=== PATIENT | male | born 1935 | race Caucasian/White ===

== ENCOUNTER 2022-05-21 09:15 | Outpatient (RCR) | payer MEDICARE, BC, SELFPAY | END 2022-05-23 17:17 | disposition home or self-care (01) | DX: M25.561 Pain in right knee (principal); Z51.89 Encounter for other specified aftercare | CPT/HCPCS: 97110; 97140; 97161 ==

== ENCOUNTER 2022-10-29 22:12 | Outpatient (CLI) | payer MEDICARE, BC, SELFPAY | END 2022-10-29 22:13 | disposition home or self-care (01) | LOC: AMB 10-30 16:27 | PROVIDERS: PCP Family Medicine; Visit Provider Family Medicine | DX: R10.9 Unspecified abdominal pain (principal) | CPT/HCPCS: A0425; A0428 ==

== ENCOUNTER 2023-09-03 14:00 | Outpatient (RCR) | payer MEDICARE, BC, SELFPAY | END 2024-01-01 23:59 | disposition home or self-care (01) | PROVIDERS: PCP Family Medicine; Visit Provider Family Medicine | DX: M79.605 Pain in left leg (principal); M54.42 Lumbago with sciatica, left side; Z51.89 Encounter for other specified aftercare | CPT/HCPCS: 97110; 97140; 97162 ==

== ENCOUNTER 2023-12-03 20:18 | Outpatient (CLI) | payer MEDICARE, BC, SELFPAY | END 2023-12-03 20:19 | disposition home or self-care (01) | LOC: SLEEP 20:19 | PROVIDERS: PCP Family Medicine; Visit Provider Internal Medicine | DX: G47.33 Obstructive sleep apnea (adult) (pediatric) (principal); G47.61 Periodic limb movement disorder | CPT/HCPCS: 95810 ==

== ENCOUNTER 2024-03-09 10:00 | Outpatient (RCR) | payer MEDICARE, BC, SELFPAY | END 2024-03-09 10:51 | disposition home or self-care (01) | PROVIDERS: PCP Family Medicine; Visit Provider Family Medicine | DX: M54.50 Low back pain, unspecified (principal); G89.29 Other chronic pain; Z51.89 Encounter for other specified aftercare | CPT/HCPCS: 97110; 97140; 97161 ==

== ENCOUNTER 2024-07-10 13:45 | Outpatient (RCR) | payer MEDICARE, BC, SELFPAY ==
--- NOTE | 2024-06-24 11:45 | PT.OPEX ---
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 Referring MD Lopez Subjective Preferred Name Asif Subjective Reports he has been doing his exercises, but modifies them and has difficulty due to pain L post hip 'like my billfold is there stabbing me.' Had relief with injection 6 months ago, repeated 3 months ago but that injection did not work for him. States he has been declining in strength and mobility due to pain. Pt is now up with his walker, noted L lateral shift, poor safety turning and backing up. Pain Comments L groin and L PSIS/buttock area-moderate to severe, nearly constant. Reports he has scoliosis and wears a L shoe insert for leg length discrepancy. Date of Last Physician Visit 05/29/24 Current Work Status Retired Precautions Treatment Precautions/Contraindications hx RTC repair, OA, falls, walker use; R foot metatarsalgia-seeing neurology for that today Weight Bearing Status Weight Bear as Tolerated Therapy Limitations/Systems Review Not Limited Objective Range of Motion L hip flex 10-95 degrees, abd 0-20, ER 0-15, IR 0-7 R hip flex 5-100 degrees, abd 0-20, ER 0-30, IR 0-15 L knee 20-100 degrees flex, R knee 5-105 flex B DF to 10 degrees, PF to 45 L lumbar shift, vc to get wt onto L hip seated, lacks rotation, bend, limited due to pain L hip/groin Strength L hip flex 3+/5, R 5-/5 L hip abd 3+/5, R 5-/5 L hip add 3+/5, R 5-/5 L knee ext 3+/5, R 5-/5 L knee flex 4/5, R 5-/5 Shldrs B 4/5, elbow/wrist/ hands 5-/5 L DF 4/5, R 4+/5 L PF 4/5, R 4+/5 Swelling B ankle edema L > R Palpation L ischial tuberosity, L greater tuberosity, central LB , L PSIS Balance & Gait sitting good static/dynamic standing fair- static/dynamic with walker 4ww 100 feet x 2 total, took 10 min to amb each time. Gt slow, antalgic, short stiff step L, lacks heel toe gt, short step on R due to minimal wt shift to L. Pt does have L lat shift at lumbar spine. Poor safety turning, backing up, labored, vc to take small marching steps with 4ww. Posture mild thoracic flex, L lat lumbar shift, hip flex 20 degrees, knees flexed L > R. Sensation/Reflexes intact to light touch Other/Pertinent Objective Fabers +, very limited hip rotation for test SLR + Functional Test Performed & Score 5 time sit<>stand 2.2 min shows high fall risk Functional reach 6 inches shows fall risk both limited due to c/o L hip pain. Assessment Assessment/Impression Asif is a 89 year old male, lives with his spouse in an older 2 story home, has had progressive L hip pain, now using a 4ww with difficulty even short distance amb. Dx also of L lumbar radiculopathy . Pt saw ortho, finds injections have not helped him , and was offered a LIZETT. He wants to try PT again before progressing to surgery. Pt presents with significant L hip and groin pain, noted L lat shift seated, standing and with gt. He reports lifetime hx of scoliosis. Today, he presents with limited HF, abd and little to no ER/IR of hips . Knees also lack extension L >R. Strength is impaired L LE, painful with testing. Pt with trigger point tenderness along L glut, piriformis and PSIS. Tolerated STM and stretching. Pt has been doing some of his own ex, demonstrated and revised for home use, did add tband seated ex for increased isometric strengthening. Worked with pt on gt safety with 4ww, avoiding stepping outside of walker base, extending hips/ back as he is able. Worked on correcting shift of his back supine, seated and standing. Pt does avoid putting wt on L hip seated and L LE in standing due to pain. Pt with impaired balance, needs walker for safety of all mobility and is at high fall risk. PT will work with him on strengthening, but therapist did discuss benefits of reducing his current pain and immobility if he chooses a hip replacement. PT to cont weekly sessions working towards goals. Pt has good cognition for new learning. Primary Functional Limitations impaired ROM, impaired strength, impaired balance, impaired ambulation, impaired mobility, L hip and groin pain with radicular sx. Plan of Care Rehabilitation Potential Good Rehabilitation Potential Comments Access Code: [email or web address] URL: [email or web address] Date: 06/24/2024 Prepared by: Alexandra Mancini Exercises - Seated Gluteal Sets - 1 x daily - 7 x weekly - 1 sets - 10 reps - 3 hold - Seated Hip Abduction with Resistance - 1 x daily - 7 x weekly - 1-2 sets - 10 reps - 3 hold - Seated Hip Adduction Isometrics with Ball - 1 x daily - 7 x weekly - 1-2 sets - 10 reps - 3 hold - Seated March - 1 x daily - 7 x weekly - 1-2 sets - 10 reps - 3 hold - Correct Standing Posture - 1 x daily - 7 x weekly - 1-2 min hold Physical Therapy Goals Within 8-10 weeks. 1. Pt will amb level surfaces 10 min w/ 4ww with upright posture, safely and independently for community mobility. 2. Pt will ascend/descend 13 stairs with railing, safely and independently for household and community mobility. 3. Pt will demonstrate 4- to 4 /5 L hip to prevent substitution of movement, prevent falls with mobility. 4. Pt will be independent n home ex program to promote strength and mobility and to prevent falls. Coordination/Communication With Referral Source,Patient Caregiver Treatment Plan/Direct Interventions Gait Training,Joint Mobilization,Manual Therapy, Neuromuscular Re-ed,Orthotics/ Braces,Self-Care/Home Management,Therapeutic Activities,Therapeutic Exercises Patient Will Be Discharged From Therapy Completion of LTG(s),Skills Plateau,Independent w/HEP, Independently Progressing Evaluation Billing Untimed Code Treatment Minutes 15 PT Eval No Charge No Complexity Low Certification Information Initial Certification Date 06/24/24 Ending Certification Date 09/21/24 Provider Signature Required Yes Provider Signature Shows Agreement With POC & Medical Necessity Physician NPI Number Write NPI# Here Physician Comment/Change : Physician Signature & Date Requested Please Sign/Date Here
== END 2024-07-14 12:57 | disposition home or self-care (01) ==
PROVIDERS: PCP Family Medicine; Visit Provider Family Medicine
DX: M16.12 Unilateral primary osteoarthritis, left hip (principal); M54.16 Radiculopathy, lumbar region; M25.552 Pain in left hip; M47.16 Other spondylosis with myelopathy, lumbar region; R53.1 Weakness; R26.2 Difficulty in walking, not elsewhere classified; Z51.89 Encounter for other specified aftercare
CPT/HCPCS: 97110; 97140; 97161

== ENCOUNTER 2024-07-29 07:40 | Day surgery (SDC) | payer MEDICARE, BC, SELFPAY ==
[2024-07-29] VITALS (24 sets, daily range): BP systolic 98–167; BP diastolic 61–103; PULSE 57–92; RESP 14–18; TEMP 36–37.1; O2SAT 97–100; BMI 25.0
--- OUTSIDE RECORDS SUMMARY | 2024-07-29 07:44 | XMS_ITS | Clinical Summary ---
Author Organization [facility] Address [place], [place] [address] Care Team Providers Care Underground [employer] Superintendent Name Role Phone Juancho Mares MD Unavailable UnavailBarbara Bowie MD Primary Care Provider [phone] Allergies No known active allergies Medications MULTIVITAMIN TAB Take 1 Tablet by mouth once daily. Contains 0.4 mg of Folic Acid. 0 05/22/20 07 Active acetaminophen (TYLENOL EXTRA STRGTH) 500 mg tabletIndications: Calculus of gallbladder with biliary obstruction but without cholecystitis Take 2 Tablets (1,000 mg) by mouth every 6 hours if needed for Headache, Pain or Temp>101.5F (38.6C) (For mild pain). Max acetaminophen dose: 4000mg in 24 hrs. 60 Tablet 3 11:29 AM CDT 11/02/19 23 Active sennosides (SENNA) 8.6 mg tabletIndications: Calculus of gallbladder with biliary obstruction but without cholecystitis Take 1 to 2 Tablets (8.6-17.2 mg) by mouth 2 times daily if needed for Constipation. 20 Tablet 3 11:29 AM CDT 11/02/19 23 Active clindamycin 1% (CLEOCIN-T) 1 % lotion Uses twice per year 02/14/20 23 Active CPAPIndications:OS A (obstructive sleep apnea) Resmed CPAP machine for home use at pressure 7cmw with epr of 3, CPAP mask- mask of choice, fit to comfort one cushion per month 1 Each 11 11/07/19 24 Active fluticasone (50 mcg per actuation) nasal solution (FLONASE)Indicatio ns:Allergic rhinitis, unspecified seasonality, unspecified trigger Inhale 2 Sprays in both nostrils once daily. 47.4 g 2 01/27/20 24 Active atorvastatin (LIPITOR) 10 mg tabletIndications: Hyperlipidemia, unspecified hyperlipidemia type Take 1 Tablet (10 mg) by mouth once daily. 100 Tablet 2 02/22/20 24 Active Active Problems Problem Noted Date Diagnosed Date S/P laparoscopic cholecystectomy 11/01/2022 MARY on CPAP 10/30/2022 Stage 3a chronic kidney disease 10/30/2022 Hyperlipidemia 10/30/2022 Choledocholithiasis 10/29/2022 Colon cancer- 1997 15cm resection 12/30/2014 BPH (benign prostatic hyperplasia) 12/08/2012 DJD (degenerative joint disease) 12/08/2012 Overview (12/08/2012): Several joints Resolved Problems Problem Noted Date Diagnosed Date Resolved Date S/P ERCP 11/01/2022 11/14/2023 Calculus of gallbladder with biliary obstruction but without cholecystitis 10/30/2022 Stage 3 chronic kidney disea se, unspecified whether stage 3a or 3b CKD 09/13/2022 11/14/2023 MARY 01/31/2015 RDI-7 02/14/2015 11/14/19 24 Encounters Date Type Department Care Team Description 07/28/2024 11:20 AM TIMBER SUPERVISOR Office Visit [facility] [place] [facility] [address] [place] [address] Dev Lorenzo MD Follow Up (Follow up after MRI's 07/02/24 ) 07/28/2024 Travel 07/24/2024 Travel 07/17/2024 Orders Only [facility] [email or web address] [address] [place] [address] [address] Barbara Castellanos MD 1 scan: (1-Ord) NFLD-EKG-07/16/24 07/16/2024 1:05 PM TIMBER SUPERVISOR Office Visit [facility] [[email or web address]] [address] [place] [address] [address] Barbara Castellanos MD Preoperative Exam (07/29/2024 L hip REPLACEMENT, Dr. Jean, [place] & [place], ) 07/16/2024 Travel 07/11/2024 Travel 07/02/2024 4:15 PM TIMBER SUPERVISOR Ancillary Procedure [facility] [[email or web address] [address] [place] [address] 07/02/2024 3:30 PM TIMBER SUPERVISOR Ancillary Procedure [facility] [[email or web address] [address] [place] [address] 07/01/2024 Travel 06/24/2024 3:20 PM TIMBER SUPERVISOR Office Visit [facility] [place] [facility] [address] [place] [address] Dev Lorenzo MD Consult (Leg weakness, bilateral, unspecified lack of coordination Ref: Dr. Castellanos/Labs/XR Lumbar 10/02/23/XR Hip, left 10/02/23/[facility] Hospital note in scans 05/29/24/MRA Head/Neck 07/22/07 @ [place]) 06/24/2024 Travel 06/02/2024 Telephone [facility] [[email or web address]] [address] [place] [address] Barbara Castellanos MD [facility] 06/01/2024 1:30 PM TIMBER SUPERVISOR Office Visit [facility] [[email or web address]] [address] [place] [address] Barbara Castellanos MD Hip Injury (Wondering if Hip Surgery is an option); Lab (Dr. Marie requested lab work due to weakening hip) 06/01/2024 Telephone [facility] NEUROLOGY [facility] Dev Lorenzo MD Referral 06/01/2024 Travel 05/28/2024 Travel 05/19/2024 12:35 PM TIMBER SUPERVISOR Office Visit [facility] [[email or web address]] [address] [place] [address] Guevara Marie MD Musculoskeletal Problem (Follow-up LEFT Hip pain) 05/19/2024 Travel from Last 3 Months Immunizations Name Administration Dates Next Due AMB INFLUENZA IIV3 (AGE 65+ YRS) PF (Flu Clinic Only) 04/28/2019 Amb Influenza, Inact (High-d ose) (Flu Clinic Only) 03/19/2014 Amb Influenza, Inactivated A IIV4 (Age 65+ Years) Preserv Free 03/08/2020 COVID-19 vaccine (Moderna 50 mcg/0.5mL) 12YO+ BIVALENT PF, MDV 10/15/2022,03/05/2022 COVID-19 vaccine (Pfizer-Bio NTech 30mcg/0.3mL) 12YO+ CLAUDIA-SUCROSE PF, MDV 09/22/2021 Hepatitis A (Adult) 02/20/2007,04/04/1998 Hepatitis A, Unspecified 04/04/1998 Inactivated Polio Vaccine 10/21/2007,02/20/2007, 04/04/1998 Influenza A (H1N1), Inactivated 06/07/2009 Influenza Virus, Unspecified 04/03/2018, 03/15/2016,03/19/2015,03/19,03/17/2014,03/19/2013,03/17/2012 ,03/17/2011,03/17/2010,03/17/2009,06/2007,04/17/2007,03/26/2007, 6,04/28/2004,04/15/2003,04/28/2001 Influenza, High-dose Inactivated 016,03/19/2015,03/19/2014,03/19 Influenza, IIV3 (Age 6-35 mos) 04/17/2007 Influenza, IIV3 (Age >=3 years) 03/17/20 10,03/26/2007,04/30/2006,04/28,04/15/2003,04/28/2001 Influenza, IIV4 03/14/2017, 5,03/17/2014,03/19,03/17/2012,03/17/2011,03/17/2010 ,06/07/2009,03/17/2009,04/17/2008,06/2006,04/30/2006,04/28/2004, 3,04/28/2001 Influenza, IIV4 (=>6mos) MDV 03/14/2017,03/14/20 15 Influenza, Inactivated AIIV4 (Age 65+ Years) Preserv Free 03/22/2022,02/23/2021 Influenza, Inactivated IIV3 (Age 65+ Years) Preserv Free 04/15/2024 Pneumococcal Poly,23-Valent (Pneumovax) 08/17/2003,04/05/1997 Pneumococcal conj 13-Valent (Prevnar 13) 09/30/2014 RSV, Recombinant ADJ Reconst ituted (Arexvy 120MCG/0.5mL) 05/24/2023 TD, UNSPECIFIED 08/20/2006,04/05/1997 Td (Age >=7 Years) 08/20/2006,04/05/1997 Td, Preservative Free (age >= 7 Years) 8,08/20/2006 Tdap 08/31/2011 Tdap, Unspecified 04/05/1997 Typhoid (injectable) 08/31/2011,02/20/2007,04/04 Zoster (Shingrix-RZV, recombinant) 05/20/2019, Zoster (Zostavax-ZVL, live) 02/20/2007 Family History Medical History Relation Name Comments Diabetes Brother Arthritis Mother Macular degeneration Mother Relation Name Status Comments Brother Mother Social History Tobacco Use Types Packs/Day Years Used Date Smoking Tobacco: Former Pipe Q uit: 12/09/1963 Smokeless Tobacco: Never Tobacco Cessation:Counseling Given: Yes Alcohol Use Standard Drinks/Week Comments Yes 0 (1 standard drink = 0.6 oz pur e alcohol) 1 PHQ-2 Answer Date Recorded PHQ-2 TOTAL SCORE 0 12/12/2023 Social Connections Answer Date Recorded Do you often feel lonely or isolated from those around you? 0 05/28/2024 Financial Resource Strain Answer Date R ecorded Difficulty of Paying Living Expenses 3 05/28/2024 Difficulty of Paying Living Expenses Not on file 05/28/2024 Food Insecurity Answer Date Recorded Do you worry your food will run out before you are able to buy more? 1 05/28/2024 Transportation Needs Answer Date Record ed Does lack of transportation keep you from medica l appointments? 1 05/28/2024 Does lack of transportation keep you from work, meetings or getting things that you need? 1 05/28/2024 Housing Stability Answer Date Recorded What is your housing situation today? 1 05/28/2024 Utilities Answer Date Recorded Do you have trouble paying f or utilities (for example, heat, electricity, water, phone)? 1 05/28/2024 Sex and Gender Information Value Date Recorded Sex Assigned at Not on file Legal Sex Male 5:24 AM TIMBER SUPERVISOR Gender Identity Not on file Sexual Orientation Not on file Obstetrics History Last Filed Vital Signs Vital Sign Reading Time Taken Comments Blood Pressure 166/71 07/28/2024 11:21 AM TIMBER SUPERVISOR Pulse 63 07/28/2024 11:21 AM TIMBER SUPERVISOR Temperature 36.7 C (98.1 F) 03/05/2024 8:28 AM CDT Respiratory Rate 17 11/01/2022 7:59 AM CDT Oxygen Saturation 100% 07/28/2024 11: 21 AM TIMBER SUPERVISOR Inhaled Oxygen Concentration - - Weight 72.5 kg (159 lb 12.8 oz) 07/16/2024 1:14 PM TIMBER SUPERVISOR Height 172.5 cm (5' 7.91) 07/16/2024 1:14 PM CS T Body Mass Index 24.36 07/16/2024 1:14 PM TIMBER SUPERVISOR Plan of Treatment Health Maintenance Due Date Last Done Comments Depression screening for age 12+ 12/11/2024 12/12/2023, 12/03/2023, 01/10/2023, Additional history exists Medicare Wellness for age 65+ 12/12/2024 12/12/2023, 01/10/2023 BMI (ht and wt on same day) for age 18+ 07/16/2025 07/16/2024, 02/05/2024, 12/12/2023, Additional history exists Tetanus booster 02/18/2028 02/17/2018, 08/15, 08/31/2011 (Completed outside of [facility]), Additional history exists Tdap Completed 08/31/2011, 08/15 (Completed outside of [facility]), 04/05/1997 Pneumococcal series for age 50+ Completed 09/30/2014, 09/30/2012 (Completed outside of [facility]), 08/17/2003, Additional history exists Zoster (shingles) series for age 50+ Completed 05/20/2019, 01/09/2019, 02/20/2007 RSV vaccine for adults or Completed 05/24/2023 COVID-19 vaccine series Completed 04/09/20 24, 08/23/2023, 10/15/2022, Additional history exists Influenza for age 65+ Completed 04/15/2024 , 03/22/2022, 02/23/2021, Additional history exists Procedures Procedure Name Priority Date/Time Associated Diagnosis Comments EKG 12 LEAD Routine 07/17/2024 4:39 PM TIMBER SUPERVISOR Pre-op exam WI READING EKG - NO CHARGE, COMP ONLY Routine 07/17/2024 4:38 PM TIMBER SUPERVISOR Pre-op exam CBC WITH AUTO DIFFERENTIAL Routine 07/16/2024 2:17 PM TIMBER SUPERVISOR Pre-op exam CREATININE Routine 07/16/2024 2:17 PM TIMBER SUPERVISOR Pre-op exam POTASSIUM Routine 07/16/2024 2:17 PM TIMBER SUPERVISOR Pre-op exam MR SPINE LUMBAR WO Routine 07/02/2024 4: 10 PM TIMBER SUPERVISOR Leg weakness, bilateral MR HEAD BRAIN WO Routine 07/02/2024 3:54 PM TIMBER SUPERVISOR Leg weakness, bilateral COMP METABOLIC PANEL Routine 06/01/2024 2:25 PM TIMBER SUPERVISOR Leg weakness, bilateral CBC WITH AUTO DIFFERENTIAL Routine 06/01/2024 2:25 PM TIMBER SUPERVISOR Leg weakness, bilateral CK TOTAL Routine 06/01/2024 2:25 PM TIMBER SUPERVISOR Leg weakness, bilateral SEDIMENTATION RATE Routine 06/01/2024 2: 25 PM TIMBER SUPERVISOR Leg weakness, bilateral C-REACTIVE PROTEIN Routine 06/01/2024 2: 25 PM TIMBER SUPERVISOR Leg weakness, bilateral TSH WITH REFLEX Routine 06/01/2024 2:25 PM TIMBER SUPERVISOR Leg weakness, bilateral Unspecified lack of coordination Anemia, unspecified type FERRITIN Routine 06/01/2024 2:25 PM TIMBER SUPERVISOR Leg weakness, bilateral Anemia, unspecified type IRON PLUS IRON BINDING CAP Routine 06/01/2024 2:25 PM TIMBER SUPERVISOR Leg weakness, bilateral Anemia, unspecified type from Last 3 Months Results * EKG 12 LEAD (07/17/2024 4:39 PM TIMBER SUPERVISOR) us Barbara Castellanos MD EKG ORD Final Resul t * WI READING EKG - NO CHARGE, COMP ONLY (07/17/2024 4:38 PM TIMBER SUPERVISOR) us Barbara Castellanos MD PB - PROVIDER READINGS Anahi l Result * POTASSIUM (07/16/2024 2:17 PM TIMBER SUPERVISOR) POTASSIUM 4.8 3.5 - 5.3 mmol/L [facility] Blood BLOOD SPECIMEN / Unknown 07/16/2024 2:17 PM TIMBER SUPERVISOR 07/16/2024 2:18 PM TIMBER SUPERVISOR us Barbara Castellanos MD CHEMISTRY Final Resul t Performing Organization Address City/State/[facility] Co de Phone Number [facility] [address] [place] [address], [facility] [address] [place] [address] * (ABNORMAL) CREATININE (07/16/2024 2:17 PM TIMBER SUPERVISOR) CREATININE 1.42(H) 0.70 - 1.22 mg/dL [facility] EGFR 48(L) > OR = 60 mL/min/1.73 m2 [facility] Blood BLOOD SPECIMEN / Unknown 07/16/2024 2:17 PM TIMBER SUPERVISOR 07/16/2024 2:18 PM TIMBER SUPERVISOR us Barbara Castellanos MD CHEMISTRY Final Resul t [facility] [address] [place] [address], [facility] [address] [place] [address] * (ABNORMAL) CBC AND DIFFERENTIAL (07/16/2024 2:17 PM TIMBER SUPERVISOR) Only the most recent of2 resultswithin the time period is included. Pathologist [facility] WHITE BLOOD CELL COUNT 6.2 3.8 - 10.8 Thousand/u L [facility] RED BLOOD CELL COUNT 3.35(L) 4.20 - 5.80 Million/uL [facility] HEMOGLOBIN 10.9(L) 13.2 - 17.1 g/dL [facility] HEMATOCRIT 33.0(L) 38.5 - 50.0 % [facility] MCV 98.5 80.0 - 100.0 fL [facility] MCH 32.5 27.0 - 33.0 pg [facility] MCHC 33.0 32.0 - 36.0 g/dL [facility] Comment: For adults, a slight decrease in the calculated MCHC value (in the range of 30 to 32 g/dL) is most likely not clinically significant; however, it should be interpreted with caution in correlation with other red cell parameters and the patient's clinical condition. RDW 11.8 11.0 - 15.0 % [facility] PLATELET COUNT 200 140 - 400 Thousand/u L [facility] MPV 14.0(H) 7.5 - 12.5 fL [facility] ABSOLUTE NEUTROPHILS 3,441 1,500 - 7,800 cells/uL [facility] ABSOLUTE LYMPHOCYTES 1,190 850 - 3,900 cells/uL [facility] ABSOLUTE MONOCYTES 1,209(H) 200 - 950 cells/uL [facility] ABSOLUTE EOSINOPHILS 310 15 - 500 cells/uL [facility] ABSOLUTE BASOPHILS 50 0 - 200 cells/uL [facility] NEUTROPHILS 55.5 % [facility] LYMPHOCYTES 19.2 % [facility] MONOCYTES 19.5 % [facility] EOSINOPHILS 5.0 % [facility] BASOPHILS 0.8 % [facility] Blood BLOOD SPECIMEN / Unknown 07/16/2024 2:17 PM TIMBER SUPERVISOR 07/16/2024 2:18 PM TIMBER SUPERVISOR us Barbara Castellanos MD HEMATOLOGY Final Resul t [facility] [address] [place] [address], [facility] [address] [place] [address] * MR SPINE LUMBAR WO CONTRAST (07/02/2024 4:10 PM TIMBER SUPERVISOR) Anatomical Region Laterality Modality Spine, LUMBAR SPINE Magnetic Res onance 07/03/2024 9:04 AM TIMBER SUPERVISOR Impressions 07/03/2024 9:04 AM TIMBER SUPERVISOR 1. Trace degenerative retrolisthesis of L1 on L2 and L2 on L3. Degenerative anterolisthesis of L4 on L5 and L5 on S1. 2. No fractures. 3. Lumbar spondylosis 4. At L4-5, disc degeneration diffuse disc bulge asymmetric to the right. Moderate to severe narrowing of the spinal canal. Right subarticular recess narrowing and impingement of the traversing right L5 nerve root. Moderate to severe narrowing of the right neural foramina. Potential impingement of the exiting right L4 nerve root 5. At L5-S1, mild narrowing of the bilateral neural foramina Dictated by Chester Dias MD @ 07/03/2024 9:04:22 AM (Electronically Signed) Narrative 07/03/2024 9:04 AM TIMBER SUPERVISOR For Patients: As a result of the Century Cures Act, medical imaging exams and procedure reports are released immediately into your electronic medical record. You may view this report before your referring provider. If you have questions, please contact your health care provider. INDICATION: Bilateral leg weakness. COMPARISON: 10/02/2023. TECHNIQUE: Sagittal T1, T2, and STIR sequences. Axial T1 and T2 weighted sequences. FINDINGS: Trace degenerative retrolisthesis of L1 on L2 and L2 on L3 measures approximately 4 mm. Degenerative anterolisthesis of L4 on L5 and L5 on S1 measures approximately 5 mm. No fractures. No vertebral body loss of height. No ligamentous injury. No suspicious osseous lesions. Normal conus terminates at L1-2. [id number]: No spinal canal neural foraminal narrowing. L1-2: Disc degeneration. No narrowing of spinal canal. No neural foraminal narrowing. L2-3: Disc degeneration. Diffuse disc bulge eccentric to the right. Mild narrowing of spinal canal. No neural foraminal narrowing. L3-4: Disc degeneration. Diffuse disc bulge. No narrowing of spinal canal. No neural foraminal narrowing. Mild facet arthropathy. L4-5: Grade 1 anterolisthesis. Disc degeneration and diffuse disc bulge eccentric to the right. Combined with ligament flavum and facet hypertrophy, there is moderate severe narrowing of spinal canal. Right subarticular recess narrowing and impingement of the traversing right L5 nerve root. Moderate severe right neural foraminal narrowing. No narrowing of the left neural foramen. Potential impingement of the exiting right L4 nerve root. Mild facet arthropathy. L5-S1: Disc degeneration diffuse disc bulge. No narrowing of spinal canal. No impingement of the traversing S1 nerve roots. Mild narrowing of bilateral foramina. Severe facet arthropathy. Degenerative changes of the SI joints. Right renal cyst. Procedure Note Chester Dias MD, PhD - 07/03/2024 For Patients: As a result of the Century Cures Act, medical imagingexams and procedure reports are released immediately into your electronicmedical record. You may view this report before your referring provider.If you have questions, please contact your health care provider. INDICATION: Bilateral leg weakness. COMPARISON: 10/02/2023. TECHNIQUE: Sagittal T1, T2, and STIR sequences. Axial T1 and T2 weighted sequences. FINDINGS: Trace degenerative retrolisthesis of L1 on L2 and L2 on L3 measuresapproximately 4 mm. Degenerative anterolisthesis of L4 on L5 and L5 on S7uljvmube approximately 5 mm. No fractures. No vertebral body loss ofheight. No ligamentous injury. No suspicious osseous lesions. Normal conusterminates at L1-2. [id number]: No spinal canal neural foraminal narrowing. L1-2: Disc degeneration. No narrowing of spinal canal. No neural foraminalnarrowing. L2-3: Disc degeneration. Diffuse disc bulge eccentric to the right. Mildnarrowing of spinal canal. No neural foraminal narrowing. L3-4: Disc degeneration. Diffuse disc bulge. No narrowing of spinal canal.No neural foraminal narrowing. Mild facet arthropathy. L4-5: Grade 1 anterolisthesis. Disc degeneration and diffuse disc bulgeeccentric to the right. Combined with ligament flavum and facethypertrophy, there is moderate severe narrowing of spinal canal. Rightsubarticular recess narrowing and impingement of the traversing right O4efzab root. Moderate severe right neural foraminal narrowing. No narrowingof the left neural foramen. Potential impingement of the exiting right Q5djnig root. Mild facet arthropathy. L5-S1: Disc degeneration diffuse disc bulge. No narrowing of spinal canal.No impingement of the traversing S1 nerve roots. Mild narrowing ofbilateral foramina. Severe facet arthropathy. Degenerative changes of the SI joints. Right renal cyst. IMPRESSION: 1. Trace degenerative retrolisthesis of L1 on L2 and L2 on L3.Degenerative anterolisthesis of L4 on L5 and L5 on S1. 2. No fractures. 3. Lumbar spondylosis 4. At L4-5, disc degeneration diffuse disc bulge asymmetric to the right.Moderate to severe narrowing of the spinal canal. Right subarticularrecess narrowing and impingement of the traversing right L5 nerve root.Moderate to severe narrowing of the right neural foramina. Potentialimpingement of the exiting right L4 nerve root 5. At L5-S1, mild narrowing of the bilateral neural foramina Dictated by Chester Dias MD @ 07/03/2024 9:04:22 AM (Electronically Signed) us Dev Lorenzo MD MR Final Res ult * MR BRAIN WO CONTRAST (07/02/2024 3:54 PM TIMBER SUPERVISOR) Anatomical Region Laterality Modality BRAIN, HEAD Magnetic Resonan ce 07/02/2024 4:18 PM TIMBER SUPERVISOR Impressions 07/02/2024 4:18 PM TIMBER SUPERVISOR 1. No acute intracranial abnormality. 2. Qzmq-aa-grctxynb chronic microvascular ischemic changes and diffuse cerebral volume loss. Dictated by Rob Fierro MD @ 07/02/2024 4:18:46 PM (Electronically Signed) Narrative 07/02/2024 4:18 PM TIMBER SUPERVISOR For Patients: As a result of the Cures Act, medical imaging exams and procedure reports are released immediately into your electronic medical record. You may view this report before your referring provider. If you have questions, please contact your health care provider. INDICATION: Bilateral leg weakness. TECHNIQUE: Multiplanar multisequence noncontrast MR images of the brain. COMPARISON: None. FINDINGS: Vcwi-lm-dipxjwyz diffuse cerebral volume loss. No mass effect or midline shift. Scattered and patchy FLAIR hyperintensities in the supratentorial white-matter, typical for nogc-xd-bglxbefy chronic microvascular ischemic changes. No intracranial hemorrhage or pathologic extra-axial fluid collection. No diffusion restriction to suggest acute infarction. The major arterial flow voids of the skullbase are preserved. Sincere cisterna magna. Thinning of the right ocular lens. Nzlf-dy-wxeahxdh paranasal sinus mucosal thickening. Mastoid air cells are clear. Procedure Note Rob Fierro MD - 07/02/2024 For Patients: As a result of the Cures Act, medical imagingexams and procedure reports are released immediately into your electronicmedical record. You may view this report before your referring provider.If you have questions, please contact your health care provider. INDICATION: Bilateral leg weakness. TECHNIQUE: Multiplanar multisequence noncontrast MR images of the brain. COMPARISON: None. FINDINGS: Dryj-yi-bqsvivpj diffuse cerebral volume loss. No mass effect or midlineshift. Scattered and patchy FLAIR hyperintensities in the supratentorialwhite-matter, typical for nckh-na-zhoqtzae chronic microvascular ischemicchanges. No intracranial hemorrhage or pathologic extra-axial fluid collection. Nodiffusion restriction to suggest acute infarction. The major arterial flow voids of the skullbase are preserved. Megacisterna magna. Thinning of the right ocular lens. Mspi-fb-vppketsuxfbdqfnjo sinus mucosal thickening. Mastoid air cells are clear. IMPRESSION: 1. No acute intracranial abnormality. 2. Agcs-il-pucdzstc chronic microvascular ischemic changes and diffusecerebral volume loss. Dictated by Rob Fierro MD @ 07/02/2024 4:18:46 PM (Electronically Signed) Dev Lorenzo MD MR Final Res ult * SEDIMENTATION RATE (06/01/2024 2:25 PM TIMBER SUPERVISOR) SED RATE BY MODIFIED WESTERGREN 11 < OR = 20 mm/h [facility] Blood BLOOD SPECIMEN / Unknown 06/01/2024 2:25 PM TIMBER SUPERVISOR 06/01/2024 2:26 PM TIMBER SUPERVISOR Barbara Castellanos MD HEMATOLOGY Final Resul t [facility] [address] [address], [facility] [address] [place] [phone] * TSH WITH REFLEX (06/01/2024 2:25 PM TIMBER SUPERVISOR) TSH W/REFLEX TO FT4 1.55 0.40 - 4.50 mIU/L [facility] Blood BLOOD SPECIMEN / Unknown 06/01/2024 2:25 PM TIMBER SUPERVISOR 06/01/2024 2:26 PM TIMBER SUPERVISOR Barbara Castellanos MD CHEMISTRY Final Resul t [facility] [address] [place] [address], [facility] [address] [place] [address] * IRON PLUS IRON BINDING CAP (06/01/2024 2:25 PM TIMBER SUPERVISOR) IRON, TOTAL 96 50 - 180 mcg/dL [facility] IRON BINDING CAPACITY 325 250 - 425 mcg/dL (calc) [facility] % SATURATION 30 20 - 48 % (calc) [facility] Blood BLOOD SPECIMEN / Unknown 06/01/2024 2:25 PM TIMBER SUPERVISOR 06/01/2024 2:26 PM TIMBER SUPERVISOR us Barbara Castellanos MD CHEMISTRY Final Resul t [facility] [address] [place] [address], [place] [phone] [facility] [address] [facility] [place] [address] * C-REACTIVE PROTEIN (06/01/2024 2:25 PM TIMBER SUPERVISOR) C-REACTIVE PROTEIN <3.0 <8.0 mg/L [facility] Blood BLOOD SPECIMEN / Unknown 06/01/2024 2:25 PM TIMBER SUPERVISOR 06/01/2024 2:26 PM TIMBER SUPERVISOR us Barbara Castellanos MD CHEMISTRY Final Resul t Performing Organization Address [facility]/ZIP Co de Phone Number [facility] [employer] [facility] [address] [place] [address], [place] [phone] [facility] [address] [place] [address] * FERRITIN (06/01/2024 2:25 PM TIMBER SUPERVISOR) FERRITIN 88 24 - 380 ng/mL [facility] Blood BLOOD SPECIMEN / Unknown 06/01/2024 2:25 PM TIMBER SUPERVISOR 06/01/2024 2:26 PM TIMBER SUPERVISOR us Barbara Castellanos MD CHEMISTRY Final Resul t [facility] [address] [place] [address], [place] [phone] [facility] [address] [place] [address] * CK TOTAL (06/01/2024 2:25 PM TIMBER SUPERVISOR) [facility] CREATINE KINASE, TOTAL 178 44 - 196 U/L [facility] BLOOD SPECIMEN / Unknown 06/01/2024 2:25 PM TIMBER SUPERVISOR 06/01/2024 2:26 PM TIMBER SUPERVISOR us Barbara Castellanos MD CHEMISTRY Final Resul t [employer] [facility] [address] [place] [address], [facility] [address] [place] [address] * (ABNORMAL) COMP METABOLIC PANEL (06/01/2024 2:25 PM TIMBER SUPERVISOR) [facility] GLUCOSE 95 65 - 99 mg/dL [facility] Comment: Fasting reference interval UREA NITROGEN (BUN) 38(H) 7 - 25 mg/dL [facility] CREATININE 1.54(H) 0.70 - 1.22 mg/dL [facility] EGFR 44(L) > OR = 60 mL/min/1.7 3m2 [facility] BUN/CREATININE RATIO 25(H) 6 - 22 (calc) [facility] SODIUM 139 135 - 146 mmol/L [facility] POTASSIUM 5.3 3.5 - 5.3 mmol/L [facility] CHLORIDE 106 98 - 110 mmol/L [facility] CARBON DIOXIDE 25 20 - 32 mmol/L [facility] CALCIUM 10.1 8.6 - 10.3 mg/dL [facility] PROTEIN, TOTAL 7.0 6.1 - 8.1 g/dL [facility] ALBUMIN 4.7 3.6 - 5.1 g/dL [facility] GLOBULIN 2.3 1.9 - 3.7 g/dL (calc) [facility] ALBUMIN/GLOBULIN RATIO 2.0 1.0 - 2.5 (calc) [facility] BILIRUBIN, TOTAL 0.7 0.2 - 1.2 mg/dL [facility] ALKALINE PHOSPHATASE 113 35 - 144 U/L [facility] AST 31 10 - 35 U/L [facility] ALT 28 9 - 46 U/L [facility] Blood BLOOD SPECIMEN / Unknown 06/01/2024 2:25 PM TIMBER SUPERVISOR 06/01/2024 2:26 PM TIMBER SUPERVISOR us Barbara Castellanos MD CHEMISTRY Final Resul t [employer] [facility] [address] [place] [address], [facility] [address] [place] [address] from Last 3 Months Insurance BLUE CROSS [place] BLUE MR PB ONLY BLUE [employer]OSS [place] BLUE HB ONLY MEDICARE PART A HB ONLY MEDICARE PART B HB ONLY TP THIRD CONSTITUTION PARTY PAYER on file Advance Directives * Full Code (Latest Code Status on File) Date Activated Date Inactivated Comments 10/30/2022 12:13 AM 11/01/2022 3:19 PM Question Answer Comments Code Status Discussion: Reviewed Preferences * Full Code Date Activated Date Inactivated Comments 10/29/2022 11:42 PM 10/30/2022 12:13 AM Question Answer Comments Code Status Discussion: Unable to Assess Preferences, Provider to review later Care Teams Underground [employer] Superintendent Relationship Specialty Start Date End Date Barbara Castellanos MD [address] [place] [address] PCP - General Family Practice 11/06/22 Juancho aMres MD General Surgery Surgery - General 12/08/12
--- NOTE | 2024-07-29 08:07 | W.PM.H&PU ---
History & Physical Update History & Physical Update H&P Reviewed and patient assessed: No changes noted
[2024-07-29] MEDS: LACTATED RINGERS 1000 ML 1,000 ML 100 ML IV ×2 (08:40→11:27)
[2024-07-29] MEDS: SODIUM CHLORIDE 0.9 % (FLUSH) 10 ML SYRINGE IVF (08:40)
[2024-07-29] MEDS: OXYCODONE (CR) 10 MG TAB.ER.12H PO (09:00)
[2024-07-29] MEDS: fentaNYL 100 MCG/2 ML inj IVP (09:09)
[2024-07-29] MEDS: MIDAZOLAM HCL 1 MG/ML inj IVP (09:09)
--- NOTE | 2024-07-29 09:09 | SUR.PREOP ---
TIME?OUT:?0909 PT/RN/MDA?VERIFICATION?OF?SURGICAL?SITE,?PROCEDURE,?AND?CONSENT OBTAINED?PRIOR?TO?INVASIVE?PROCEDURE.
--- NOTE | 2024-07-29 09:20 | W.ANESCHARGE ---
Anesthesia Charges Start Date/Time Anesthesia Start Date: 07/29/24 Anesthesia Start Time: 09:23 Stop Date/Time Anesthesia Stop Date: 07/29/24 Anesthesia Stop Time: 11:40 Summary Extremes of Age - Over 70 or under 1: MDA Coding CPT Codes CPT Codes: ANESTH HIP ARTHROPLASTY - 92611 ([id number]) P2 - PATIENT W/MILD SYST DISEASE, QK - NEWS WIRE PHOTO OPERATOR 2-4 CNCRNT ANES PROC, QX - MAT PACKER SVC W/ MD MED DIRECTION Additional Codes: Summary - Extremes of Age - Over 70 or under 1: MDA ([id number])
--- NOTE | 2024-07-29 09:20 | W.PM.NB ---
Nerve Block Nerve Block Time Seen by Provider: 09:15 Date Seen: 07/29/24 Type of block requested by surgeon for post-operative analgesia: ADAM/LFCN Side: left Time out performed: Yes Verification of patient name: Yes Verification of date of : Yes Site marking: site marked Name of person performing procedure: Anastacio Continuous monitoring Was continuous monitoring of O2 sat, B/P, radiation monitor, recorded every 15 minutes?: Yes Procedure Checklist: sterile prep, needles and gloves Ultrasound guided. Images saved: Yes Medications given in 5ml increments after negative aspiration: Ropivicaine %: 0.5 mL: 30 Needle gauge: 20 Precedex (mcg): 25 Patient tolerated procedure well: Yes Additional comments: Needle noted below psoas tendon needle noted adjacent to LFCN Block Charges Block Charge (with Pro Fee): Other Periph Nerve Block Use of Ultrasound Machine for Block: Yes- US Guidance/pain block
[2024-07-29] MEDS: CEFAZOLIN 2 GM in 0.9 % SODIUM CHLORIDE Mini-bag 100 ML IVPB (09:55)
[2024-07-29] MEDS: TRANEXAMIC ACID 100 MG/ML INJ 1000 MG IV (09:55)
--- NOTE | 2024-07-29 11:07 | PM.ORPRC ---
Procedure Note Date of procedure: 07/29/24 Procedure: PREOPERATIVE DIAGNOSIS: 1. Left hip osteoarthritis, severe, primary POSTOPERATIVE DIAGNOSIS: 1. Left hip osteoarthritis, severe, primary PROCEDURE: 1. Left total hip arthroplasty-anterior approach 2. 22283 - intraoperative fluoroscopy up to 1 hour. SURGEON: Chucho Lopez MD. DOOR MAKER: Piotr Hoffman PA-C; JAKUB Jesus - Of note, a skilled clerical administrative assistant was critical for this case to aid in patient positioning, tissue retraction, limb manipulation/positioning, dislocation/relocation, patient safety, and closure. ANESTHESIA: Spinal anesthetic EBL: 300 mL IMPLANTS: DePuy J&J uncemented total hip [place] cup size 52, hole eliminator, +4 neutral liner Actis stem, high offset, size 4 +1.5 mm ceramic 36 mm head. COMPLICATIONS: None evident INDICATIONS: The patient is a pleasant 89-year-old male who has experienced severe left hip pain and difficulty bearing weight. Workup included x-rays which revealed severe osteoarthrosis in the hip. Given the deformity, the dysfunction, and the pain, as well as the failure of nonoperative management, recommendation was made for surgery. FINDINGS: Full-thickness chondral loss with flattening to the femoral head. Osteophytes on the femoral head/neck junction and perimeter of the acetabulum. Moderate effusion upon entering the joint. Capsule was adherent to the femoral neck. DESCRIPTION OF PROCEDURE: Following a thorough discussion of risks, benefits, and alternatives consent was obtained and the left hip was marked. The patient was brought to the operating room and placed supine on the operating table. Induction of anesthesia was undertaken. 1 g IV Ancef and 1 g tranexamic acid was administered within 1 hr of incision preoperatively. Proper time-out was performed identifying proper patient, site, procedure. The operative extremity was prepped and draped in the appropriate sterile fashion using ChloraPrep after the patient was positioned on the [place] table with head in neutral alignment and all bony prominences well padded. C-arm fluoroscopic imaging was utilized to confirm proper pelvis rotation and position, and to get true AP films of both the contralateral left, and the affected left hip. This is for comparison. A longitudinal incision was made starting approximately 1 cm distal to the ASIS, and 3-4 cm lateral. The incision was extended distally aiming toward the lateral border the patella. Sharp incision through skin and bovie cautery through the subcutaneous tissue allowed identification of the TFL fascia. This was sharply divided, and the fascia bluntly released from the muscle fibers as we dissected medial. Upon coming to the medial border, we were able to retract the TFL laterally, and penetrated the deeper fascia and identify the crossing circumflex vessels. These were ligated/cauterized. The rectus was elevated from the capsule, and retractors placed laterally and medially along the femoral neck to help with visualization of the capsule. We then performed an inverted T capsulotomy. The capsule was tagged for later repair. Retractors were placed inside the capsule. The femoral neck was visualized after releasing medially down to the lesser trochanter, along the saddle laterally, and up onto the acetabulum. The femoral neck cut was made in line with our preoperative templating. The head was removed in a single piece, and sized. We turned our attention to acetabular preparation. Initially, the labrum was resected from around the perimeter, the pulvinar was excised, allowing us to visualize the false wall. We started the reaming with a 43 mm reamer. This was medialized down to the true wall. We then enlarged our reamers sequentially up to one size less than the selected cup size. We trialed at the same size and found it to have an excellent fit. The selected cup was then opened, inserted, and impacted in line with the goal of 40-45? of abduction, and 20-25? of anteversion. This was confirmed on C-arm fluoroscopic imaging to be in the appropriate/goal position. Once the cup was placed we placed a hole eliminator and a liner consistent with preop planning. Attention was turned to the femoral preparation. The limb was extended, externally rotated, and adducted. The posteromedial capsule was released, as retractors were placed allowing excellent access to the proximal femur. Initially a box fabricator was followed by canal finder followed by various broaches. We broached sequentially up to size noted above, found it to have excellent rotational control, and trialing various heads and necks, revealed that appropriate neck offset, and the above noted head size provided the greatest stability, and judaism of length, and offset. C-arm fluoroscopic imaging confirmed position of the stem, as well as leg lengths, which were compared with the pre procedure all fluoroscopic images. Trial implants were removed, the real femoral stem inserted, as was the ceramic head. After reducing, the leg was placed through range of motion and stability was confirmed anterior, posterior, and lateral. A 3 min Betadine soak was then performed, and thorough irrigation with normal saline followed. Closure of the capsule was performed with #1 PDS. Bleeding was confirmed to be controlled at this stage, and the TFL fascia was closed with #0 strata fix. Subcutaneous, and subcuticular closure was performed with 2-0 Vicryl and 4-0 Monocryl, respectively. Dressings were applied, and the patient was awoken from anesthesia and transferred the PACU in stable condition. A skilled clerical administrative assistant was critical for this case to aid in patient positioning, tissue retraction, proximal femur exposure, limb manipulation/positioning, dislocation/relocation, patient safety, and closure. PLAN: 1. Weight bear as tolerated operative extremity. 2. 23 hr perioperative antibiotics. 3. Ice. 4. PT/OT consults for ambulation assistance/mobility education. 5. Social work consult for discharge planning. 6. DVT prophylaxis with at SCDs and Xarelto x5 days followed by aspirin for a total of 1 month..
--- NOTE | 2024-07-29 11:42 | W.ANESCHARGE ---
Anesthesia Charges Start Date/Time Anesthesia Start Date: 07/29/24 Anesthesia Start Time: 09:23 Stop Date/Time Anesthesia Stop Date: 07/29/24 Anesthesia Stop Time: 11:40 Summary Extremes of Age - Over 70 or under 1: ENTERPRISE ACCOUNT MANAGER Coding CPT Codes CPT Codes: ANESTH HIP ARTHROPLASTY - 86849 ([id number]) P2 - PATIENT W/MILD SYST DISEASE, QK - ECHO TECH 2-4 CNCRNT ANES PROC, QX - ENTERPRISE ACCOUNT MANAGER SVC W/ MD MED DIRECTION Additional Codes: Summary - Extremes of Age - Over 70 or under 1: ENTERPRISE ACCOUNT MANAGER ([id number])
[2024-07-29] MEDS: ACETAMINOPHEN 500 MG TABLET 1000 MG PO ×2 (15:39→20:18)
[2024-07-29] MEDS: CEFAZOLIN 1 GM in 0.9 % SODIUM CHLORIDE Mini-bag 100 ML IVPB ×2 (15:43→23:34)
--- NOTE | 2024-07-29 17:15 | PM.IMCN1 ---
Date of Consult Patient: Macario Patient Consult date: 07/29/24 Requesting Physician: Orthopedics Primary Care Provider: Barbara Castellanos MD Consult Narrative Narrative: Asif Odonnell is a 89 year old male admitted to the hospital for left total hip arthroplasty. He had no complications. Estimated blood loss of [address] Lopez requests consultation for medical management following surgery. Postoperatively patient reports generally doing well. He still having the effects of spinal anesthesia on his left lower extremity. Motion and sensation has entirely returned on the right side but is still mildly an affect on his left. He is not having significant pain from the surgery but he does report pain in the area of his left upper buttock/lower spine in the area of the SI joint. This is been a chronic pain for him. He has had relatively longstanding problems with his left lower extremity. Over the past year he has gone from walking independently to walking with a cane to walking with a walker last summer. Ambulation is much lower. He feels like his balance is worse. He feels like his left leg is weak and painful when he is bearing weight. He has been seen by Neurology to evaluate for neurologic causes of his problem. He has been identified as having proximal muscle weakness in his legs. He has received 2 cortisone injections into his left hip. The 1st injection was quite helpful but the 2nd 1 had minimal benefit. Surgery today was to address the hip pain and Cl much benefit he can get with the more complicated weakness and pain in his entire left lower extremity. He was chilled after surgery and that has resolved. Pain is well controlled. No nausea. No dyspnea. He reports feeling well this morning when he came to the hospital other than anxiety about surgery. Preop physical did not identify any other significant health concerns relative to his perioperative care. Review of Systems Narrative: No other recent health concerns except as noted above. 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 - Unspecified abnormalities of gait and mobility (ICD-10) Hyperlipidemia ?E78.5 - Hyperlipidemia, unspecified (ICD-10) BPH (benign prostatic hyperplasia) ?N40.0 - Benign prostatic hyperplasia without lower urinary tract symptoms (ICD-10) Stage 3a chronic kidney disease ?N18.31 - Chronic kidney disease, stage 3a (ICD-10) Left knee pain ?M25.562 - Pain in left knee (ICD-10) Right knee pain ?M25.561 - Pain in right knee (ICD-10) Shoulder joint stiffness, bilateral ?M25.611 - Stiffness of right shoulder, not elsewhere classified (ICD-10) ?M25.612 - Stiffness of left shoulder, not elsewhere classified (ICD-10) Strain of right quadriceps ?S76.111A - Strain of right quadriceps muscle, fascia and tendon, initial encounter (ICD-10) Colon cancer ?C18.9 - Malignant neoplasm of colon, unspecified (ICD-10) Arthritis ?M19.90 - Unspecified osteoarthritis, unspecified site (ICD-10) High cholesterol ?E78.00 - Pure hypercholesterolemia, unspecified (ICD-10) Sleep apnea ?G47.30 - Sleep apnea, unspecified (ICD-10) Surgical History (Updated 07/29/24 @ 17:31 by Blas Monte MD) S/P total left hip arthroplasty ?Z96.642 - Presence of left artificial hip joint (ICD-10) Hx of vasectomy ?Z98.52 - Vasectomy status (ICD-10) Hx of tonsillectomy ?Z90.89 - Acquired absence of other organs (ICD-10) Hx of endoscopic retrograde cholangiopancreatography ?Z98.890 - Other specified postprocedural states (ICD-10) Hx of cataract extraction ?Z98.49 - Cataract extraction status, unspecified eye (ICD-10) History of colon resection ?Z90.49 - Acquired absence of other specified parts of digestive tract (ICD-10) Hx laparoscopic cholecystectomy ?Z90.49 - Acquired absence of other specified parts of digestive tract (ICD-10) History of appendectomy ?Z90.49 - Acquired absence of other specified parts of digestive tract (ICD-10) History of hernia repair ?Z98.890 - Other specified postprocedural states (ICD-10) ?Z87.19 - Personal history of other diseases of the digestive system (ICD-10) Family History (Updated 07/29/24 @ 17:27 by Blas Monte MD) Brother Diabetes Social History (Updated 07/29/24 @ 17:28 by Blas Monte MD) Narrative: He lives with his in [place]. 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 Occasionally drinks a glass of wine, remote history of smoking having quit 60 years ago. is healthcare power of regulatory attorney. Code status is full code for witnessed arrest. House has 5 steps to get in but he can then live on 1 level. What is your current living situation?: I presently have a place to live Problems where you live: no known problems In the past 12 months, utilities in danger of being shut off: no In the past 12 mos, have been you worried that your food would run out before you had money to buy more?: never true In the past 12 mos, the food you bought just didn't last and you didn't have money to buy more?: never true Smoking Status: Never smoker How often do you have a drink containing alcohol: monthly or less AUDIT-C Alcohol total score: 1 Non-prescribed substance use: denies use Caffeine: No How often does anyone, including family, friends and others, physically hurt you: never How often does anyone, including family, friends and others, insult or talk down to you: never How often does anyone, including family, friends and others, threaten you with harm: never How often does anyone, including family, friends and others, scream or curse at you: never Meds Home Medications and Allergies Home Medications ?Medication ?Instructions ?Recorded ?Confirmed ?Type fluticasone propionate 50 2 spray intranasal DAILY PRN 10/29/22 07/29/24 History mcg/actuation nasal spray,suspension multivitamin (Multiple Vitamins 1 tab PO DAILY 10/29/22 07/29/24 History tablet) acetaminophen 500 mg capsule 1,000 mg PO Q6H PRN 05/29/24 07/29/24 History atorvastatin 10 mg tablet 10 mg PO DAILY 07/21/24 07/29/24 History Allergies Allergy/AdvReac Type Severity Reaction Status Date / Time No Known Drug Allergies Allergy Verified 05/29/24 10:55 Exam Narrative: Exam Narrative: He is alert and appears in no distress. Eyes normal. Oropharynx normal. Neck is supple out mass or adenopathy. Respirations are clear to auscultation. Cardiovascular: S1, S2, regular rate and rhythm abdomen: Bowel sounds active. Abdomen is soft without tenderness or mass. Back is examined no obvious trauma. Palpation shows minimal tenderness over the area of the left SI joint but he reports that this is the place where he has the most pain at this time. Left hip without obvious bruising or swelling or erythema. Left lower extremity is quite weak secondary to lingering effects of anesthesia. He has marked decrease in sensation through his left lower extremity. Intact pedal pulses. Right lower extremity is normal. Const: Vital Signs, click to edit/add: Vital Signs - 24 hr 07/29/24 09:03 07/29/24 09:10 07/29/24 09:15 Temperature 98.2 F Pulse Rate 74 68 67 Pulse Rate [Right Pulse Oximeter] Respiratory Rate 16 16 16 Blood Pressure 167/71 H 163/103 H 155/88 H Blood Pressure [Le ft Arm] Pulse Oximetry 98 100 100 Oxygen Delivery Me thod Room Air Nasal Cannula Nasal Cannula Oxygen Flow Rate 3 3 07/29/24 09:25 07/29/24 11:35 07/29/24 11:40 Temperature 97.4 F L Pulse Rate 64 67 65 Pulse Rate [Right Pulse Oximeter] Respiratory Rate 14 14 14 Blood Pressure 116/73 109/69 118/68 Blood Pressure [Le ft Arm] Pulse Oximetry 99 99 98 Oxygen Delivery Me thod Nasal Cannula Room Air Room Air Oxygen Flow Rate 3 07/29/24 11:45 07/29/24 11:50 07/29/24 11:50 Temperature 97.6 F Pulse Rate 65 67 70 Pulse Rate [Right Pulse Oximeter] Respiratory Rate 16 16 16 Blood Pressure 99/71 130/63 135/70 Blood Pressure [Le ft Arm] Pulse Oximetry 98 99 100 Oxygen Delivery Me thod Room Air Room Air Room Air Oxygen Flow Rate 07/29/24 12:00 07/29/24 12:05 07/29/24 12:15 Temperature 97.6 F 97.4 F L Pulse Rate 60 57 L 68 Pulse Rate [Right Pulse Oximeter] Respiratory Rate 16 16 18 Blood Pressure 131/71 132/78 136/86 Blood Pressure [Le ft Arm] Pulse Oximetry 100 100 100 Oxygen Delivery Me thod Room Air Room Air Room Air Oxygen Flow Rate 0 07/29/24 12:30 07/29/24 12:45 07/29/24 13:00 Temperature 97.4 F L 96.8 F L 96.8 F L Pulse Rate 68 76 70 Pulse Rate [Right Pulse Oximeter] Respiratory Rate 16 16 16 Blood Pressure 145/80 H 152/91 H 164/90 H Blood Pressure [Le ft Arm] Pulse Oximetry 100 100 99 Oxygen Delivery Me thod Room Air Room Air Room Air Oxygen Flow Rate 0 0 0 07/29/24 13:30 07/29/24 14:00 07/29/24 14:30 Temperature 97.2 F L 97.4 F L 97.4 F L Pulse Rate 65 73 Pulse Rate [Right Pulse Oximeter] 68 Respiratory Rate 16 16 16 Blood Pressure 157/91 H 139/75 Blood Pressure [Le ft Arm] 132/72 Pulse Oximetry 100 99 99 Oxygen Delivery Me thod Room Air Room Air Room Air Oxygen Flow Rate 0 0 0 07/29/24 14:30 07/29/24 15:00 07/29/24 15:00 Temperature 97.4 F L 97.4 F L Pulse Rate 68 83 Pulse Rate [Right Pulse Oximeter] Respiratory Rate 16 16 16 Blood Pressure 132/72 128/81 Blood Pressure [Le ft Arm] Pulse Oximetry 99 99 99 Oxygen Delivery Me thod Room Air Room Air Room Air Oxygen Flow Rate 0 0 0 07/29/24 16:00 07/29/24 17:00 Temperature 98.0 F 98.0 F Pulse Rate 88 90 Pulse Rate [Right Pulse Oximeter] Respiratory Rate 18 16 Blood Pressure 125/97 H 112/61 Blood Pressure [Le ft Arm] Pulse Oximetry 100 98 Oxygen Delivery Me thod Room Air Room Air Oxygen Flow Rate 0 0 Documenting provider has reviewed patient's vital signs: yes Assessment and Plan Assessment and plan (1) S/P total left hip arthroplasty: Problem comment: Dr. Lopez, 07/29/2024, no complications. Anticipate routine pain management, therapy, discharge to home tomorrow. Status: Acute (2) Gait disorder: Problem comment: Progressive over the year 2023 with loss of functioning including increasing left hip and leg pain, proximal weakness, ataxia. Went from independent ambulation to use of a walker with difficulties. Complicated problem. Important to assess improvement in his left lower extremity weakness and pain and disability as he recovers from surgery Status: Acute (3) Sleep apnea: Problem comment: Monitor for hypoxia. Status: Acute (4) BPH (benign prostatic hyperplasia): Problem comment: Monitor for urinary retention. Status: Acute Plan Patient is admitted to the hospital for postop care following surgery. Monitor problems outlined above. Anticipate discharge to home tomorrow with outpatient follow-up. Total time spent today is 45 minutes in reviewing past records discussion with patient and family about ongoing evaluation management of medical problems especially concerning impaired gait and balance, weakness and pain in his lower extremities
--- NOTE | 2024-07-29 18:21 | PC.NURSE ---
Pt arrived to floor from surgery around noon. Pt pleasant and cooperative. Pt had complaints of pain ranging 0-3; scheduled medication and aqua k pad put in place. Pt alert and oriented. Pt's dressing is dry and intact. Pt advanced to regular diet and tolerated well. Pt had no complaints of N/V. Pt's family at bedside.
[2024-07-29] MEDS: LACTATED RINGERS 1000 ML 1,000 ML 75 ML IV (18:23)
[2024-07-29] MEDS: SENNOSIDES 1 TAB TABLET 2 TAB PO (20:18)
[2024-07-30 03:00] VITALS: BP 115/70; PULSE 87; RESP 18; TEMP 37.1; O2SAT 99
[2024-07-30] MEDS: ACETAMINOPHEN 500 MG TABLET 1000 MG PO ×2 (03:14→11:20)
[2024-07-30] MEDS: OXYCODONE 5 MG TABLET PO ×3 (06:27→11:19)
--- NOTE | 2024-07-30 06:37 | PC.NURSE ---
19-: pleasant and cooperative. Calls appropriately. Pts left leg is numb from knee up, pt has sensation to L foot and L calf, but doesn't feel touch above knee, pt unable to bear weight to left limb properly. using abraham steady with transfers. Soft BPs, pt states his baseline SBP is 130s, pt was asymptomatic with these, BP trending up. Ice to Left hip. Aqua k pad to lower back.
[2024-07-30 06:49] LABS: Basophils Percent Auto 0.3 % (0.0-3.0); Eosinophils Percent Auto 0.3 % (0.0-7.0); Hematocrit 27.1 % (37.0-53.0); Hemoglobin* 8.6 gm/dL (13.5-17.5); Immature Granulocytes Pct Auto 0.3 %; Lymphocytes Percent Auto 8.7 % (20-44); Mean Corpuscular HGB Conc 32 gm/dL (32-36); Mean Corpuscular Hemoglobin 32 pg (26-34); Mean Corpuscular Volume 100 fL (80-100); Monocytes Percent Auto 21.8 % (0.0-11.0); Neutrophils Percent Auto 68.6 % (42.0-72.0); Platelet Count* 148 K/uL (140-440); RDW Coefficient of Variation % 12.6 % (11.5-15.5); White Blood Count* 11.17 K/uL (4.50-11.00)
[2024-07-30 07:02] LABS: Potassium* 4.7 mmol/L (3.6-5.1); Sodium* 136 mmol/L (135-149)
[2024-07-30 07:03] LABS: Slide Review Reflex Yes
[2024-07-30 07:05] LABS: Blood Urea Nitrogen* 35 mg/dL (7-30); Creatinine* 1.5 mg/dL (0.5-1.5); Est. Creatinine Clearance* 32.44; Estimated Glomerular Filt Rate 45 ml/min
[2024-07-30 08:25] LABS: Slide Review Acceptable Review (Acceptable)
[2024-07-30] MEDS: SENNOSIDES 1 TAB TABLET 2 TAB PO (08:45)
[2024-07-30] MEDS: RIVAROXABAN 10 MG TABLET PO (08:45)
[2024-07-30] MEDS: ATORVASTATIN CALCIUM 10 MG TABLET PO (08:45)
[2024-07-30 08:49] VITALS: BP 112/59; PULSE 98; RESP 21; O2SAT 97
[2024-07-30 12:00] VITALS: BP 100/51; PULSE 87; RESP 16; O2SAT 97
--- NOTE | 2024-07-30 13:53 | PM.IMPN1 ---
Progress Note: A&P Assessment and plan (1) S/P total left hip arthroplasty: Problem details: Dr. Lopez, 07/29/2024, no complications. Anticipate routine pain management, therapy, discharge to home today with . 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 Went from independent ambulation to use of a walker with difficulties. Complicated problem. Important to assess improvement in his left lower extremity weakness and pain and disability as he recovers from surgery Status: Acute (3) Sleep apnea: Problem details: Monitor for hypoxia. Status: Acute (4) BPH (benign prostatic hyperplasia): Problem details: Monitor for urinary retention. Status: Acute Plan Discharge to home with . Follow-up as needed for disability related to left lower extremity as you recover from surgery Time Spent With Patient Total time spent: Total time spent today is 25 minutes in coordination of care discussing with patient and other providers ongoing evaluation management of lower extremity weakness and disability Subjective Date Seen: 07/30/24 Interval history: Asif Odonnell is a 89 year old male admitted to the hospital for left total hip arthroplasty. He had no complications. Estimated blood loss of [address] Lopez requests consultation for medical management following surgery. Postoperatively patient reports generally doing well. He still having the effects of spinal anesthesia on his left lower extremity. Motion and sensation has entirely returned on the right side but is still mildly an affect on his left. He is not having significant pain from the surgery but he does report pain in the area of his left upper buttock/lower spine in the area of the SI joint. This is been a chronic pain for him. He has had relatively longstanding problems with his left lower extremity. Over the past year he has gone from walking independently to walking with a cane to walking with a walker last summer. Ambulation is much lower. He feels like his balance is worse. He feels like his left leg is weak and painful when he is bearing weight. He has been seen by Neurology to evaluate for neurologic causes of his problem. He has been identified as having proximal muscle weakness in his legs. He has received 2 cortisone injections into his left hip. The 1st injection was quite helpful but the 2nd 1 had minimal benefit. Surgery today was to address the hip pain and Cl much benefit he can get with the more complicated weakness and pain in his entire left lower extremity. He was chilled after surgery and that has resolved. Pain is well controlled. No nausea. No dyspnea. He reports feeling well this morning when he came to the hospital other than anxiety about surgery. Preop physical did not identify any other significant health concerns relative to his perioperative care. 07/30/2024: Patient has been working with therapy to stand and ambulate independently. He is making progress with this. Pain control is good. His nerve blocks are mostly wearing off now. He has no other concerns. Exam Narrative: Exam Narrative: He is observed to our walk with therapy. A he gets up with some difficulty but is showing improvement even during the brief period of observation. Breathing is unlabored. No significant swelling or bruising. Const: Vital Signs, click to edit/add: Vital Signs - 24 hr 07/29/24 14:00 07/29/24 14:30 07/29/24 14:30 Temperature 97.4 F L 97.4 F L 97.4 F L Pulse Rate 73 68 Pulse Rate [Right Pulse Oximeter] 68 Respiratory Rate 16 16 16 Blood Pressure 139/75 132/72 Blood Pressure [Le ft Arm] 132/72 Pulse Oximetry 99 99 [facility] Room Air Oxygen Flow Rate 0 0 0 07/29/24 15:00 07/29/24 15:00 07/29/24 16:00 Temperature 97.4 F L 98.0 F Pulse Rate 83 88 Pulse Rate [Right Pulse Oximeter] Respiratory Rate 16 16 18 Blood Pressure 128/81 125/97 H Blood Pressure [Le ft Arm] Pulse Oximetry 99 99 100 [facility] Room Air Room Air Oxygen Flow Rate 0 0 0 07/29/24 17:00 07/29/24 18:00 07/29/24 19:00 Temperature 98.0 F 98.2 F 98.4 F Pulse Rate 90 81 Pulse Rate [Right Pulse Oximeter] 88 Respiratory Rate 16 16 16 Blood Pressure 112/61 107/66 Blood Pressure [Le ft Arm] 108/62 Pulse Oximetry 98 99 98 [facility] Air Room Air Oxygen Flow Rate 0 0 07/29/24 22:14 07/29/24 23:38 07/30/24 03:00 Temperature 98.7 F 98.7 F Pulse Rate Pulse Rate [Right Pulse Oximeter] 92 87 Respiratory Rate 16 16 18 Blood Pressure Blood Pressure [Le ft Arm] 98/74 115/70 Pulse Oximetry 97 99 Oxygen Delivery [facility] Room Air Room Air Room Air Oxygen Flow Rate 07/30/24 08:49 07/30/24 08:49 Temperature Pulse Rate Pulse Rate [Right Pulse Oximeter] 98 Respiratory Rate 21 21 Blood Pressure Blood Pressure [Le ft Arm] 112/59 L Pulse Oximetry 97 97 Oxygen Delivery [facility] Room Air Room Air Oxygen Flow Rate Documenting provider has reviewed patient's vital signs: yes Labs Labs: Laboratory Results - last 24 hr 07/30/24 06:06 WBC 11.17 H RBC 2.70 L Hgb 8.6 L Hct 27.1 L MCV 100 MCH 32 MCHC 32 RDW Coeff of [place] 12.6 Plt Count 148 Neut % (Auto) 68.6 Lymph % (Auto) 8.7 L [place] % (Auto) 21.8 H Eos % (Auto) 0.3 Baso % (Auto) 0.3 Neut # (Auto) 7.70 H Lymph # (Auto) 1.00 [place] # (Auto) 2.40 H Eos # (Auto) 0.00 Baso # (Auto) 0.00 Abs Immat Gran (auto) 0.00 Imm/Tot Granulo (auto) 0.3 Diff Slide Review Acceptable Review Sodium 136 Potassium 4.7 BUN 35 H Creatinine 1.5 Estimated Creat Clear 32.44 Estimated GFR 45
--- NOTE | 2024-07-30 14:18 | PM.ORPN ---
Subjective Subjective Date Seen: 07/30/24 Principal diagnosis: Status postop day 1, left total hip arthroplasty - anterior approach Interval history: Patient reports doing okay. Biggest complaint is numbness through his left leg and foot. States the feeling is getting better. Pain is mild-moderate, managed with scheduled and PRN medications, ice. DVT prophylaxis: Rivaroxaban, SCDs, walking. Denies fevers, chills, aches, N/V, CP, SOB/LOONEY, or lightheadedness. Ortho Exam Narrative Exam Narrative: -Patient appears comfortable in his recliner; no apparent acute distress. Family present -Alert and oriented times 3 -Operative hip swollen; soft tissues supple; no obvious erythema. Warmth appropriate -Surgical dressing clean, dry, intact; no obvious drainage, no erythematous streaking peripheral to the bandage -Bilateral calves soft and supple; no significant swelling, edema, tenderness, erythema, discoloration, warmth, or palpable cords -2+ DP/PT pulses, intact dermatomes and myotomes distally. Numbness about the lateral femoral cutaneous nerve distribution, as well as some numbness medial thigh, and medial calf. Demonstrates quad activation. Const Vital Signs, click to edit/add: Vital Signs - 24 hr 07/29/24 14:30 07/29/24 14:30 07/29/24 15:00 Temperature 97.4 F L 97.4 F L 97.4 F L Pulse Rate 68 83 Pulse Rate [Right Pulse Oximeter] 68 Respiratory Rate 16 16 16 Blood Pressure 132/72 128/81 Blood Pressure [Left Arm] 132/72 Pulse Oximetry 99 99 99 Oxygen Delivery Method Room Air Room Air Room Air Oxygen Flow Rate 0 0 0 07/29/24 15:00 07/29/24 16:00 07/29/24 17:00 Temperature 98.0 F 98.0 F Pulse Rate 88 90 Pulse Rate [Right Pulse Oximeter] Respiratory Rate 16 18 16 Blood Pressure 125/97 H 112/61 Blood Pressure [Left Arm] Pulse Oximetry 99 100 98 Oxygen Delivery Method Room Air Room Air Room Air Oxygen Flow Rate 0 0 0 07/29/24 18:00 07/29/24 19:00 07/29/24 22:14 Temperature 98.2 F 98.4 F Pulse Rate 81 Pulse Rate [Right Pulse Oximeter] 88 Respiratory Rate 16 16 16 Blood Pressure 107/66 Blood Pressure [Left Arm] 108/62 Pulse Oximetry 99 98 Oxygen Delivery Method Room Air Room Air Room Air Oxygen Flow Rate 0 07/29/24 23:38 07/30/24 03:00 07/30/24 08:49 Temperature 98.7 F 98.7 F Pulse Rate Pulse Rate [Right Pulse Oximeter] 92 87 Respiratory Rate 16 18 21 Blood Pressure Blood Pressure [Left Arm] 98/74 115/70 Pulse Oximetry 97 99 97 Oxygen Delivery Method Room Air Room Air Room Air Oxygen Flow Rate 07/30/24 08:49 Temperature Pulse Rate Pulse Rate [Right Pulse Oximeter] 98 Respiratory Rate 21 Blood Pressure Blood Pressure [Left Arm] 112/59 L Pulse Oximetry 97 Oxygen Delivery Method Room Air Oxygen Flow Rate Assessment and Plan Assessment and plan (1) S/P total left hip arthroplasty: Problem details: Dr. Lopez, 07/29/2024, no complications. Anticipate routine pain management, therapy, discharge to home tomorrow. 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 Went from independent ambulation to use of a walker with difficulties. Complicated problem. Important to assess improvement in his left lower extremity weakness and pain and disability as he recovers from surgery Status: Acute (3) Sleep apnea: Problem details: Monitor for hypoxia. Status: Acute (4) BPH (benign prostatic hyperplasia): Problem details: Monitor for urinary retention. Status: Acute Plan - Complete 23 hour perioperative antibiotics. - PT/OT consult for education and assistance. - Social work consult for discharge planning - Prescribed analgesics as needed - DVT prophylaxis: Rivaroxaban, walking, and SCDs - Anticipation is for discharge to home with family today 07/30/2024 if the patient remains medically stable, pain is controlled, and they are safe with mobilization.
--- NOTE | 2024-07-30 15:45 | PC.NURSE ---
Nursing Care Hours: [id number] Pt this shift calm and cooperative, alert and oriented. Pain treated with PO meds per eMAR. Bandage CDI, bilat feet warm and pedal pulses felt. VSS. Ax1 with walker and gait belt to W/C. IV removed for discharge. Wheeled out to vehicle. Ax1 in vehicle tolerated well. forms signed, all questions and concerns addressed. Pt left in stable condition.
== END 2024-07-30 12:57 | disposition home or self-care (01) ==
LOC: OR 07:41 → MEDSURG 07:42
PROVIDERS: PCP Family Medicine; Visit Provider Orthopaedic Surgery Sports Medicine
PROC: (CPT 27130; principal; 2024-07-29 09:30)
DX: M16.12 Unilateral primary osteoarthritis, left hip (principal); G89.18 Other acute postprocedural pain; N18.31 Chronic kidney disease, stage 3a; N40.0 Benign prostatic hyperplasia without lower urinary tract symptoms; R26.9 Unspecified abnormalities of gait and mobility; G47.33 Obstructive sleep apnea (adult) (pediatric)
CPT/HCPCS: 27130; 01214; 36415; 64450; 73501; 76000; 76942; 82565; 84132; 84295; 84520; 85025; 86850; 86900; 86901; 97110; 97112; 97116; 97161; 97165; 97530; 97535; 99100; A9270; C1776; J0690; J1100; J2250; J2405; J2704; J2795; J3010; J7120

== ENCOUNTER 2024-09-23 13:00 | Outpatient (RCR) | payer MEDICARE, BC, SELFPAY ==
--- NOTE | 2024-07-17 09:51 | PT.OPEX ---
PT [place] Outpatient Eval PT [facility] Outpatient Eval Start: 07/14/24 12:55 Freq: Status: Active Protocol: Document 07/17/24 07:22 HLA (Rec: 07/17/24 09:35 HLA [id number]) E-signed By Alexandra Mancini, PT, DPT Physical Therapy Outpatient Evaluation Insurance Information Recert Due Date 10/14/24 Insurance Name [employer] Medical Diagnosis OA, pain, stiffness L hip, undergoing L LIZETT 07/29/24 Treating Diagnosis pain, weakness, stiffness L hip, difficulty with transfers and amb Referring MD Lopez Subjective Preferred Name Asif Subjective Pain L hip has progressed, more difficulty amb, transitioning, doing ADLs and sleeping so he has decided to proceed with his LIZETT and is here for teaching. Dtr and spouse present. Pain Comments moderate to severe pain L hip with standing, gt, transitions Date of Last Physician Visit 07/16/24 Date of Surgery (If applicable) 07/29/24 Current Work Status Retired Precautions Treatment Precautions/Contraindications pain with turning, twisting Weight Bearing Status Weight Bear as Tolerated Therapy Limitations/Systems Review Not Limited Objective Range of Motion L hip 20-95 flex, abd 0-20, ER 0-5, IR 0-10 L knee 15-110 L ankle DF to 10 degrees, PF to 50 R hip 20-110, abd 0-30, ER 0- 30, IR 0-30 R knee 10-110 R ankle UES full Strength L hip flex 3-/5 L hip abd 3+/5 L hip ext 4-/4 L hip add 3+/5 L knee ext 3+/5 L knee flex 4/5 L ankle 4/5 R LE 5-/5 Swelling B calf and foot edema Palpation pain L greater trochanter Balance & Gait Gt slow, antalgic with short steps using 4ww, limited to 150-200 feet, slow antalgic turns and backing up Balance impaired due to pain, end stage OA L hip, 4ww for safety. Sensation/Reflexes intact to light touch Assessment Assessment/Impression Asif is a 89 year old male with severe L hip pain/OA, tried PT for strength, pain reduction and gt with short term relief, but now is proceeding with L ant LIZETT. Pt at baseline lives with his Asmita in a 2 story home, 5 step entry with 1 railing. They have a new accessible bathroom main floor and moved his bed to the main floor. Asif has significant grimacing, audible crepitus and apparent discomfort with ROM and strength testing. Limited with hip flexor and HS tightness bilaterally, weakness L hip and knee due to pain at his hip. Grossly 3+ to 4-/5. Pt moves slowly, rises to stand with difficulty , pain extending his hips and knees. He amb short distances with a 4ww, very minimal wt through L LE. Pt was instructed in anterior LIZETT ex program (quad sets, glut sets, ham sets, ankle pumps, heel slides, standing hip abduction , and supine lying flat) per protocol to be practiced pre- operatively and for improved learning post-operatively. Pt was instructed in hospital post-op progression in PT, safety, fall prevention. Pt was instructed in positioning in chair, use of ice/polar care, bed, transfer safety, gt safety with walker, stairs, car transfers and outpatient therapy progression. He has a ww, 4ww, cane, handicap height toilet, accessible shower with 3 grab bars, leg packing and wrapping supervisor, sock aid, web design intern, long handled shoe horn, and a polar care ice machine for home use . Pt will return for twice weekly PT after his surgery. Primary Functional Limitations pain L hip with transfers, gt, transitions, ADLs, moving in general is limited Plan of Care Rehabilitation Potential Good Physical Therapy Goals Within this session: Pt will verbalize understanding of pre -op/post-op safety, mobility and exercises with home program issued and pt returning for ongoing therapy after LIZETT replacement. Within 8-10 weeks. 1. Pt will amb level surfaces 20 min without an assistive device and no evidence of limp . 2. Pt will ascend/descend 13 stairs with railing reciprocally, safely and independently for household and community mobility. 3. Pt will demonstrate normal strength of surgical hip to prevent substitution of movement, prevent falls with mobility. 4. Pt will be independent in home ex program to promote strength and mobility and to prevent falls. Coordination/Communication With Referral Source Treatment Plan/Direct Interventions Gait Training,Ice/Cold/ Vasopneumatic,Manual Therapy, Neuromuscular Re-ed, Therapeutic Exercises Patient Will Be Discharged From Therapy Completion of LTG(s),Skills Plateau,Independent w/HEP, Independently Progressing Evaluation Billing Untimed Code Treatment Minutes 10 PT Eval No Charge No Complexity Low Certification Information Initial Certification Date 07/17/24 Ending Certification Date 10/14/24 Provider Signature Required Yes Provider Signature Shows Agreement With POC & Medical Necessity Physician NPI Number Write NPI# Here Physician Comment/Change : Physician Signature & Date Requested Please Sign/Date Here
== END 2024-09-23 14:34 | disposition home or self-care (01) ==
PROVIDERS: PCP Family Medicine; Visit Provider Orthopaedic Surgery Sports Medicine
DX: M16.12 Unilateral primary osteoarthritis, left hip (principal); M25.652 Stiffness of left hip, not elsewhere classified; Z96.642 Presence of left artificial hip joint; Z74.09 Other reduced mobility; R53.1 Weakness; Z51.89 Encounter for other specified aftercare
CPT/HCPCS: 97110; 97112; 97116; 97161; 97164; 97530

== ENCOUNTER 2025-01-27 09:45 | Outpatient (RCR) | payer MEDICARE, BC, SELFPAY | END 2025-05-27 23:59 | disposition home or self-care (01) | PROVIDERS: PCP Family Medicine; Visit Provider Family Medicine | DX: R41.3 Other amnesia (principal); Z51.89 Encounter for other specified aftercare | CPT/HCPCS: 97165; 97535 ==